=== PATIENT | male | born 1985 | race American Indian/Alaskan Native ===

== ENCOUNTER 2017-01-06 07:02 | Emergency (ER) | payer MEDICARE, MEDICAID ==
[2017-01-06 07:37] VITALS: BMI 25.5
[2017-01-06] MEDS ORDERED: Albuterol-Ipratrop 3 mg / 0.5 (3 ml) UD INH STA (07:38)
[2017-01-06] MEDS ORDERED: Albuterol 0.083% Inhal Sol (2.5 mg/3 mL) UD INH STA (07:38)
[2017-01-06 07:39] VITALS: RESP 20
[2017-01-06] MEDS ORDERED: Albuterol 0.083% Inhal Sol (2.5 mg/3 mL) UD ONE (07:44)
[2017-01-06] MEDS ORDERED: Magnesium Sulfate 1 gm in D5W 1 GM/100 ML BAG IVPB ONE ×2 (07:44→08:37)
[2017-01-06] MEDS ORDERED: Albuterol-Ipratrop 3 mg / 0.5 (3 ml) UD ONE (07:44)
[2017-01-06] MEDS: Magnesium Sulfate 1 gm in D5W 1 GM/100 ML BAG IVPB SCH ×2 (07:47→08:36)
[2017-01-06 08:08] LABS: BASO % 0.1 % (0.0-2.0); EOS % 0.2 % (0.0-4.0); HEMATOCRIT 34.4 % (35.0-51.0); LYMPH # 2.4 K/uL (1.0-4.3); MEAN CELL VOLUME 86.1 fL (80.0-94.0); MEAN CORPUSCULAR HEMOGLOBIN 28.4 pg (27.0-31.0); MEAN PLATELET VOLUME 9.9 fL (7.2-11.7); MONO # 0.8 K/uL (0.0-0.8); MONO % 7.6 % (0.0-10.0); RED CELL DISTRIBUTION WIDTH 15.1 % (11.5-14.5); WHITE BLOOD COUNT 10.4 K/uL (4.8-10.8)
[2017-01-06 08:14] LABS: CHLORIDE 106 mmol/L (98-107); SODIUM 142 mmol/L (132-148)
[2017-01-06 08:15] LABS: POTASSIUM 3.6 mmol/L (3.6-5.2)
--- NOTE | 2017-01-06 08:15 | C.PDOC ---
History Of Present Illness 31 y/o male with history of asthma presents to the ED complaining of shortness of breath and wheezing x 3 days. He admits to cough with yellowish sputum but denies fever, chest pain, recent travel, or known sick contacts. Patient reports seen at [facility] yesterday for same but eloped from the ED. Chief Complaint (Nursing): Shortness Of Breath History Per: Patient History/Exam Limitations: no limitations Onset/Duration Of Symptoms: Days (3), Persistent Current Symptoms Are (Timing): Still Present Current Respiratory Medications: See Home Med List Recent travel outside of the [place]: No Past Medical History Reviewed: Historical Data, Nursing Documentation, Vital Signs Vital Signs: Last Vital Signs Temp 97.9 F 01/06/17 07:36 Pulse 85 01/06/17 09:47 Resp 20 01/06/17 09:47 BP 141/89 01/06/17 09:47 Pulse Ox 99 01/06/17 09:47 - Medical History PMH: Asthma, HTN, Hypothyroidism Surgical History: No Surg Hx Family History: States: Unknown Family Hx - Social History Hx Tobacco Use: No Hx Alcohol Use: No Hx Substance Use: No - Immunization History Hx Tetanus Toxoid Vaccination: No Hx Influenza Vaccination: No Hx Pneumococcal Vaccination: No Review Of Systems Except As Marked, All Systems Reviewed And Found Negative. Constitutional: Negative for: Fever Cardiovascular: Negative for: Chest Pain Respiratory: Positive for: Shortness of Breath, Wheezing Physical Exam - Physical Exam Appears: Non-toxic, No Acute Distress Skin: Normal Color, Warm, Dry, No Rash Head: Atraumatic, Normacephalic Eye(s): bilateral: PERRL, Other (mild exophthalmos) Ear(s): Bilateral: Normal Nose: Normal Oral Mucosa: Moist Throat: Normal, No Erythema, No Exudate Neck: Normal ROM, Supple Chest: Symmetrical Cardiovascular: Rhythm Regular, No Edema Respiratory: No Rales, No Rhonchi, Wheezing (mild expiratory b/l), Other (good air entry) Gastrointestinal/Abdominal: Normal Exam, Bowel Sounds, Soft, No Tenderness Extremity: Normal ROM, No Pedal Edema, No Swelling Neurological/Psych: Oriented x3, Normal Speech, Normal Cognition ED Course And Treatment - Laboratory Results Result Diagrams: 01/06/17 07:42 01/06/17 07:42 ECG: Interpreted By Me ECG Rhythm: Sinus Rhythm Interpretation Of ECG: normal axis, normal intervals Rate From EC (bpm) O2 Sat by Pulse Oximetry: 100 (ra) Pulse Ox Interpretation: Normal Progress Note: Plan: EKG, CXR, Blood Work, Albuterol INH, Magnesium Sulfate IVPB , Prednisone IVP. Medical Decision Making Medical Decision Makin:50 - Patient denies SOB at this time. Lungs clear b/l. O2 sat at 100% on room air. Patient to be discharged with Rx and follow up instructions. Disposition - Disposition Referrals: [facility] [Outside] [facility] [Outside] Disposition: HOME/ ROUTINE Disposition Time: 09:50 Condition: IMPROVED Additional Instructions: Thank you for letting us take care of you today. Your provider was Dr. Pozo. You were treated for asthma exacerbation and hyperthyroidism. The emergency medical care you received today was directed at your acute symptoms. If you were prescribed any medication, please fill it and take as directed. It may take several days for your symptoms to resolve. Return to the Emergency Department if your symptoms worsen, do not improve, or if you have any other problems. Please contact your doctor or call one of the physicians/clinics you have been referred to that are listed on the Patient Visit Information form that is included in your discharge packet. Bring any paperwork you were given at discharge with you along with any medications you are taking to your follow up visit. Our treatment cannot replace ongoing medical care by a primary care provider (PCP) outside of the emergency department. Thank you for allowing the [facility] team to be part of your care today. Follow up with the clinic in 3-4 days to be re-evaluated. Prescriptions: Albuterol/Ipratropium [Duoneb 3 mg/0.5 mg (3 ml) UD] 1 ea IH Q6 PRN #1 unit PRN Reason: Shortness Of Breath Azithromycin [Zithromax] 250 mg PO DAILY #4 tab predniSONE [Prednisone] 40 mg PO DAILY #10 tab Propylthiouracil 50 mg PO Q8 #21 tab Instructions: Asthma (ED), Hyperthyroidism (ED) - Clinical Impression Clinical Impression: Asthma exacerbation, Hyperthyroidism, Bronchitis - Scribe Statement The provider has reviewed the documentation as recorded by the Scribe (Meredith Choudhury) Provider Attestation: All medical record entries made by the Scribe were at my direction and personally dictated by me. I have reviewed the chart and agree that the record accurately reflects my personal performance of the history, physical exam, medical decision making, and the department course for this patient. I have also personally directed, reviewed, and agree with the discharge instructions and disposition.
[2017-01-06 08:17] LABS: ALB/GLOB RATIO 1.2 (1.0-2.1); ALKALINE PHOSPHATASE 149 U/L (38-126); ALT/SGPT 33 U/L (21-72); AST/SGOT 37 U/L (17-59); BILIRUBIN,TOTAL 0.6 mg/dL (0.2-1.3); BLOOD UREA NITROGEN 16 mg/dL (9-20); CARBON DIOXIDE 25 mmol/L (22-30); GFR AFRICAN-AMERICAN > 60; TOTAL PROTEIN 6.4 g/dL (6.3-8.3)
[2017-01-06 08:18] LABS: CALCIUM 8.7 mg/dl (8.6-10.4); GLUCOSE,RANDOM 82 mg/dL (75-110)
[2017-01-06 08:33] LABS: T4 > 24.9 ug/dL (5.5-11.0)
[2017-01-06 08:36] LABS: FT3 > 22.80 pg/mL (2.77-5.27)
[2017-01-06 08:47] LABS: THYROID STIMULATING HORMONE < 0.02 mIU/L (0.46-4.68)
--- NOTE | 2017-01-06 09:44 | RAD ---
PROCEDURE: CHEST RADIOGRAPH, 1 VIEW HISTORY: SOB COMPARISON: None available. FINDINGS: LUNGS: Mild venous congestion. Right hilar prominence. PLEURA: No pneumothorax or pleural fluid seen. CARDIOVASCULAR: Normal. OSSEOUS STRUCTURES: No significant abnormalities. VISUALIZED UPPER ABDOMEN: Normal. OTHER FINDINGS: None. IMPRESSION: Mild venous congestion. Right hilar prominence.
[2017-01-06 09:48] VITALS: BP 141/89; PULSE 85
[2017-01-06 09:56] VITALS: O2SAT 100
[2017-01-06 10:01] VITALS: TEMP 98
--- NOTE | 2017-01-22 13:08 | CARD ---
APPROVED REPORT EKG Measurement Heart [id number] <Conclusion> Normal sinus rhythm Possible Left atrial enlargement Left ventricular hypertrophy Nonspecific T wave abnormality Prolonged QT Abnormal ECG
== END 2017-01-06 10:07 | disposition home or self-care (01) ==
LOC: C.ER 07:02
DX: J45.901 Unspecified asthma with (acute) exacerbation (principal); J20.9 Acute bronchitis, unspecified; E05.90 Thyrotoxicosis, unspecified without thyrotoxic crisis or storm
CPT/HCPCS: 71010; 80053; 84436; 84443; 84481; 85025; 93005; 94640; 96365; 96375; 96376; 99284; J2930; J3475

== ENCOUNTER 2017-06-08 21:30 | Inpatient (IN) | payer MEDICARE, MEDICAID ==
[2017-06-08 21:31] VITALS: BMI 25.5
[2017-06-08] MEDS ORDERED: Albuterol-Ipratrop 3 mg / 0.5 (3 ml) UD ONE (21:47)
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
[2017-06-09 01:39] LABS: BASO % 0.3 % (0.0-2.0); EOS # 0.1 K/uL (0.0-0.7); EOS % 1.4 % (0.0-4.0); HEMATOCRIT 37.8 % (35.0-51.0); LYMPH # 1.8 K/uL (1.0-4.3); LYMPH % 19.2 % (20.0-40.0); MEAN CELL VOLUME 90.8 fL (80.0-94.0); MEAN CORPUSCULAR HEMOGLOBIN 31.1 pg (27.0-31.0); MEAN CORPUSCULAR HGB CONC 34.2 g/dL (33.0-37.0); MEAN PLATELET VOLUME 10.2 fL (7.2-11.7); MONO # 0.5 K/uL (0.0-0.8); MONO % 5.8 % (0.0-10.0); NRBC % 0.1 % (0.0-2.0); RED CELL DISTRIBUTION WIDTH 12.7 % (11.5-14.5); WHITE BLOOD COUNT 9.5 K/uL (4.8-10.8)
[2017-06-09 01:51] LABS: RBC URINE 1 /hpf (0-3); URINE BILIRUBIN NEGATIVE (NEGATIVE); URINE BLOOD NEGATIVE (NEGATIVE); URINE COLOR Yellow (YELLOW); URINE GLUCOSE (UA) NORMAL (Normal); URINE KETONE NEGATIVE (NEGATIVE); URINE LEUKOCYTE ESTERASE TRACE Leu/uL (Negative); URINE PROTEIN 1+ mg/dL (NEGATIVE); WBC URINE 7 /hpf (0-5)
[2017-06-09 01:53] LABS: CHLORIDE 107 mmol/L (98-107)
[2017-06-09] MEDS ORDERED: Albuterol-Ipratrop 3 mg / 0.5 (3 ml) UD INH STA ×2 (01:53→07:37)
[2017-06-09 01:54] LABS: POTASSIUM 3.8 mmol/L (3.6-5.2); SODIUM 142 mmol/L (132-148)
[2017-06-09 01:56] LABS: ALB/GLOB RATIO 1.4 (1.0-2.1); ALKALINE PHOSPHATASE 147 U/L (38-126); ALT/SGPT 32 U/L (21-72); AST/SGOT 26 U/L (17-59); BILIRUBIN,TOTAL 0.8 mg/dL (0.2-1.3); BLOOD UREA NITROGEN 15 mg/dL (9-20); CARBON DIOXIDE 23 mmol/L (22-30); GFR AFRICAN-AMERICAN > 60; GLUCOSE,RANDOM 74 mg/dL (75-110); INR 1.1; TOTAL PROTEIN 6.8 g/dL (6.3-8.3)
[2017-06-09 01:57] LABS: CALCIUM 8.9 mg/dl (8.6-10.4)
[2017-06-09] MEDS ORDERED: Albuterol-Ipratrop 3 mg / 0.5 (3 ml) UD ONE ×2 (01:57→08:20)
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
[2017-06-09] MEDS ORDERED: Benzoin Compound Tincture (60 ml) ONE (03:48)
[2017-06-09] MEDS: HYDROmorphone 0.5 mg/0.5 ml ISec IVP PRN ×5 (04:42→21:28)
[2017-06-09] MEDS ORDERED: Dextrose 5%/0.45% NS 1,000 ML IV ONE (06:03)
[2017-06-09] MEDS: Dextrose 5%/0.45% NS 1,000 ML IV SCH (06:57)
[2017-06-09] MEDS: Pantoprazole 40 mg EC Tab PO SCH (11:11)
[2017-06-09] MEDS ORDERED: Pantoprazole 40 mg EC Tab PO ONE (11:11)
[2017-06-09] MEDS ORDERED: HYDROmorphone 1 mg/ml ISec IVP PRN (12:51)
--- NOTE | 2017-06-09 14:00 | CP.PCM.CON ---
History of Present Illness - History of Present Illness History of Present Illness: SPINE CONSULT Pt sen and examined. Full consult dictated. CT of T-spine ordered. If fx's confined to spinous precesses, no further intervention needed. Will f/u after CT done. Past Patient History - Past Social History Smoking Status: Light Smoker < 10 Cigarettes Daily - CARDIAC Hx Hypertension: Yes - PULMONARY Hx Asthma: Yes - ENDOCRINE/METABOLIC Hx Hypothyroidism: Yes - PSYCHIATRIC Hx Substance Use: No - SURGICAL HISTORY Hx Surgeries: Yes Other/Comment: right hand - ANESTHESIA Hx Anesthesia: Yes Hx Anesthesia Reactions: No Meds Allergies/Adverse Reactions: Allergies Allergy/AdvReac Type Severity Reaction Status Date / Time milk Allergy Verified 06/08/17 21:52 seafood Allergy Uncoded 06/08/17 21:52 - Medications Medications: Current Medications Albuterol/Ipratropium (Duoneb 3 Mg/0.5 Mg (3 Ml) Ud) 3 ml INH RQ6 REYES Hydromorphone HCl (Dilaudid) 0.5 mg IVP Q6H PRN PRN Reason: Pain, Mild (1-3) Last Admin: 06/09/17 09:15 Dose: 0.5 mg Hydromorphone HCl (Dilaudid) 1 mg IVP Q4H PRN PRN Reason: Pain, moderate (4-7) Dextrose/Sodium Chloride (Dextrose 5%/0.45% Ns 1000 Ml) 1,000 mls @ 50 mls/hr IV .Q20H [facility] Last Admin: 06/09/17 06:57 Dose: 50 mls/hr Pantoprazole Sodium (Protonix Ec Tab) 40 mg PO DAILY [facility] Last Admin: 06/09/17 11:11 Dose: 40 mg Results - Vital Signs Recent Vital Signs: Last Vital Signs Temp 98.4 F 06/09/17 13:50 Pulse 85 06/09/17 13:50 Resp 20 06/09/17 13:50 BP 144/68 06/09/17 13:50 Pulse Ox 97 06/09/17 13:50 - Labs Result Diagrams: 06/09/17 01:36 06/09/17 01:36 Labs: Laboratory Results - last 24 hr 06/09/17 06/09/17 06/09/17 01:36 01:36 01:36 WBC 9.5 RBC 4.16 L Hgb 12.9 Hct 37.8 MCV 90.8 D MCH 31.1 H MCHC 34.2 RDW 12.7 Plt Count 167 MPV 10.2 Neut % (Auto) 73.3 Lymph % (Auto) 19.2 L [place] % (Auto) 5.8 Eos % (Auto) 1.4 Baso % (Auto) 0.3 Neut # 6.9 Lymph # 1.8 [place] # 0.5 Eos # 0.1 Baso # 0.0 PT 11.8 INR 1.1 APTT 36 H Sodium 142 Potassium 3.8 Chloride 107 Carbon Dioxide 23 Anion Gap 16 BUN 15 Creatinine 0.7 L Est GFR ( Amer) > 60 Est GFR (Non-Af Amer) > 60 Random Glucose 74 L Calcium 8.9 Total Bilirubin 0.8 AST 26 ALT 32 Alkaline Phosphatase 147 H Total Protein 6.8 Albumin 4.0 Globulin 2.8 Albumin/Globulin Ratio 1.4 Urine Color Urine Clarity Urine pH Ur Specific [place] Urine Protein Urine Glucose (UA) Urine Ketones Urine Blood Urine Nitrate Urine Bilirubin Urine Urobilinogen Ur Leukocyte Esterase Urine WBC (Auto) Urine RBC (Auto) Ur Squamous Epith Cells Urine Opiates Screen Urine Methadone Screen Ur Barbiturates Screen Ur Phencyclidine Scrn Ur Amphetamines Screen U Benzodiazepines Scrn U Oth Cocaine Metabols U Cannabinoids Screen Blood Type Antibody Screen 06/09/17 06/09/17 06/09/17 01:36 01:38 01:38 WBC RBC Hgb Hct MCV MCH MCHC RDW Plt Count MPV Neut % (Auto) Lymph % (Auto) [place] % (Auto) Eos % (Auto) Baso % (Auto) Neut # Lymph # [place] # Eos # Baso # PT INR APTT Sodium Potassium Chloride Carbon Dioxide Anion Gap BUN Creatinine Est GFR ( Amer) Est GFR (Non-Af Amer) Random Glucose Calcium Total Bilirubin AST ALT Alkaline Phosphatase Total Protein Albumin Globulin Albumin/Globulin Ratio Urine Color Yellow Urine Clarity Clear Urine pH 5.0 Ur Specific [place] 1.025 Urine Protein 1+ H Urine Glucose (UA) Normal Urine Ketones Negative Urine Blood Negative Urine Nitrate Negative Urine Bilirubin Negative Urine Urobilinogen 4.0 Ur Leukocyte Esterase Trace Urine WBC (Auto) 7 H Urine RBC (Auto) 1 Ur Squamous Epith Cells 1 Urine Opiates Screen Negative Urine Methadone Screen Negative Ur Barbiturates Screen Negative Ur Phencyclidine Scrn Negative Ur Amphetamines Screen Negative U Benzodiazepines Scrn Negative U Oth Cocaine Metabols Negative U Cannabinoids Screen Positive Blood Type B POSITIVE Antibody Screen Negative
[2017-06-09] MEDS: Albuterol-Ipratrop 3 mg / 0.5 (3 ml) UD INH SCH ×2 (14:20→19:58)
--- NOTE | 2017-06-09 15:33 | CT ---
PROCEDURE: CT Thoracic Spine without contrast HISTORY: r/o fracture COMPARISON: None. TECHNIQUE: Axial computed tomography images were obtained of the thoracic spine without intravenous contrast. Coronal and sagittal reformatted images were created and reviewed. Radiation dose: Total exam DLP = 671.86 mGy-cm. This CT exam was performed using one or more of the following dose reduction techniques: Automated exposure control, adjustment of the mA and/or kV according to patient size, and/or use of iterative reconstruction technique. FINDINGS: VERTEBRAE: There is limited scoliotic deformity of the mid thoracic spine which is a reverse S shaped type scoliosis. Eight argue making made for anterior wedging of the T7 vertebral body and potentially T6 minimally. However this may be a function of chronic changes related to the limited scoliotic deformity. Nuclear bone scan or MRI can confirm whether this is an acute fracture process or not. No fragmentation is appreciated throughout the thoracic spine or suspicious lytic or blastic change. No bony central canal or neural foraminal stenosis identified. Ground-glass opacity is again seen the bilateral lower lobes incidentally.. DISCS/SPINAL CANAL/NEURAL FORAMINA: Within the limits of the CT technique, no disc herniation seen. No central canal or neural foraminal stenosis.. PARASPINAL SOFT TISSUES: Unremarkable. OTHER FINDINGS: Unremarkable. IMPRESSION: Minimal potential compression fractures of T7 and possibly T6 are identified but these may be chronic minimal deformities from limited scoliosis deformity. No gross fracture or fragmentation or spondylolisthesis identified. No spinal stenosis appreciable. MRI or bone scan can determine potential acute fracture if clinical concern remains.
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
[2017-06-10] MEDS: Albuterol-Ipratrop 3 mg / 0.5 (3 ml) UD INH SCH ×5 (02:07→19:23)
[2017-06-10] MEDS: HYDROmorphone 0.5 mg/0.5 ml ISec IVP PRN ×7 (02:34→20:31)
[2017-06-10] MEDS ORDERED: Albuterol-Ipratrop 3 mg / 0.5 (3 ml) UD INH STA (06:07)
[2017-06-10] MEDS: Pantoprazole 40 mg EC Tab PO SCH (09:10)
--- NOTE | 2017-06-10 09:45 | CP.PCM.PN ---
Subjective - Date & Time of Evaluation Date of Evaluation: 06/10/17 Time of Evaluation: 09:43 - Subjective Subjective: SPINE Spoke with nurse on phone. Pt still c/o signif pain. Will adjust analgesics. Reviewed CT - possible fx of vertebral body. Will order MRI to assess. Objective - Vital Signs/Intake and Output Vital Signs (last 24 hours): Temp Pulse Resp BP Pulse Ox 99.1 F 94 H 18 156/80 H 99 06/10/17 07:25 06/10/17 07:25 06/10/17 07:25 06/10/17 07:25 06/10/17 07:25 Intake and Output: 06/10/17 06/10/17 06:59 18:59 Intake Total 1158 Output Total 600 Balance 558 - Medications Medications: Current Medications Albuterol/Ipratropium (Duoneb 3 Mg/0.5 Mg (3 Ml) Ud) 3 ml INH RQ6 [facility] Last Admin: 06/10/17 02:07 Dose: 3 ml Hydromorphone HCl (Dilaudid) 0.5 mg IVP Q6H PRN PRN Reason: Pain, Mild (1-3) Last Admin: 06/10/17 06:02 Dose: 0.5 mg Hydromorphone HCl (Dilaudid) 1 mg IVP Q4H PRN PRN Reason: Pain, moderate (4-7) Last Admin: 06/10/17 08:28 Dose: 1 mg Dextrose/Sodium Chloride (Dextrose 5%/0.45% Ns 1000 Ml) 1,000 mls @ 50 mls/hr IV .Q20H [facility] Last Admin: 06/10/17 00:00 Dose: Not Given Pantoprazole Sodium (Protonix Ec Tab) 40 mg PO DAILY [facility] Last Admin: 06/10/17 09:10 Dose: 40 mg - Labs Labs: 06/09/17 01:36 06/09/17 01:36 PT 11.8 SECONDS (9.7-12.2) 06/09/17 01:36 INR 1.1 06/09/17 01:36 APTT 36 SECONDS (21-34) H 06/09/17 01:36
[2017-06-10] MEDS: oxyCODONE 20 mg ER Tab (oxyCONTIN) PO SCH ×3 (12:08→22:08)
[2017-06-10 16:14] VITALS: RESP 20
[2017-06-10] MEDS ORDERED: Bacitracin 500 Units/gm Oint Foilpak UD TOP ONE (17:30)
--- NOTE | 2017-06-10 19:45 | CP.PCM.PN ---
Subjective - Date & Time of Evaluation Date of Evaluation: 06/10/17 Time of Evaluation: 11:00 - Subjective Subjective: clinically same Objective - Vital Signs/Intake and Output Vital Signs (last 24 hours): Temp Pulse Resp BP Pulse Ox 98.6 F 91 H 20 145/70 99 06/10/17 15:13 06/10/17 15:30 06/10/17 15:13 06/10/17 15:13 06/10/17 15:13 - Medications Medications: Current Medications Albuterol/Ipratropium (Duoneb 3 Mg/0.5 Mg (3 Ml) Ud) 3 ml INH RQ6 [facility] Last Admin: 06/10/17 19:23 Dose: 3 ml Hydromorphone HCl (Dilaudid) 1 mg IVP Q3H PRN PRN Reason: Pain, severe (8-10) Last Admin: 06/10/17 17:33 Dose: 1 mg Dextrose/Sodium Chloride (Dextrose 5%/0.45% Ns 1000 Ml) 1,000 mls @ 50 mls/hr IV .Q20H [facility] Last Admin: 06/10/17 00:00 Dose: Not Given Oxycodone HCl (Oxycontin Extended Release Tab) 20 mg PO Q12 [facility] Last Admin: 06/10/17 16:15 Dose: 20 mg Pantoprazole Sodium (Protonix Ec Tab) 40 mg PO DAILY [facility] Last Admin: 06/10/17 09:10 Dose: 40 mg - Labs Labs: 06/09/17 01:36 06/09/17 01:36 PT 11.8 SECONDS (9.7-12.2) 06/09/17 01:36 INR 1.1 06/09/17 01:36 APTT 36 SECONDS (21-34) H 06/09/17 01:36 - Constitutional Appears: Well - Head Exam Head Exam: ATRAUMATIC, NORMAL INSPECTION, NORMOCEPHALIC - Eye Exam Eye Exam: EOMI, Normal appearance, PERRL Pupil Exam: NORMAL ACCOMODATION, PERRL - ENT Exam ENT Exam: Mucous Membranes Moist, Normal Exam - Neck Exam Neck Exam: Full ROM, Normal Inspection. absent: Lymphadenopathy - Respiratory Exam Respiratory Exam: Decreased Breath Sounds - Cardiovascular Exam Cardiovascular Exam: REGULAR RHYTHM, +S1, +S2 - GI/Abdominal Exam GI & Abdominal Exam: Soft, Diminished Bowel Sounds - Rectal Exam Rectal Exam: Deferred
[2017-06-10] MEDS: Dextrose 5%/0.45% NS 1,000 ML IV SCH ×2 (22:11)
[2017-06-11] MEDS: Albuterol-Ipratrop 3 mg / 0.5 (3 ml) UD INH SCH ×3 (01:24→19:14)
[2017-06-11] MEDS: HYDROmorphone 0.5 mg/0.5 ml ISec IVP PRN ×4 (01:39→11:27)
[2017-06-11 08:57] VITALS: O2SAT 98
[2017-06-11] MEDS ORDERED: Bacitracin 500 Units/gm Oint Foilpak UD TOP SCH (10:00)
[2017-06-11] MEDS: Pantoprazole 40 mg EC Tab PO SCH (10:40)
[2017-06-11] MEDS: oxyCODONE 20 mg ER Tab (oxyCONTIN) PO SCH (10:40)
[2017-06-11] MEDS ORDERED: HYDROmorphone 0.5 mg/0.5 ml ISec IVP PRN ×2 (11:40→17:00)
[2017-06-11] MEDS ORDERED: Albuterol-Ipratrop 3 mg / 0.5 (3 ml) UD INH ONE (12:15)
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
[2017-06-11 16:20] VITALS: BP 143/77; PULSE 81; TEMP 98.2
[2017-06-11] MEDS ORDERED: HYDROmorphone 1 mg/ml ISec IVP PRN (17:00)
--- NOTE | 2017-06-11 17:28 | CP.PCM.PN ---
Subjective - Date & Time of Evaluation Date of Evaluation: 06/11/17 Time of Evaluation: 17:27 - Subjective Subjective: PRIMARY RN LEANDER REQUESTED HELP WITH PT'S MED ORDERS FOR PAIN AND ATTENDING NOT CALLING HIM BACK. PER PRIMARY RN LEANDER, PT IS CURRENTLY REFUSING APARTMENT COORDINATOR PUMP BECAUSE HE DOESN'T WANT TO USE THE CO2 DETECTOR. APARTMENT COORDINATOR ORDER D/ C'D AND REORDERED DILAUDID 1 MG Q3 PRN WHICH PT WAS GETTING EARLIER. DR. Leonardo BERRY MADE AWARE. NO FURTHER ORDERS PER LINING CEMENTER. Objective - Vital Signs/Intake and Output Vital Signs (last 24 hours): Temp Pulse Resp BP Pulse Ox 98.2 F 81 20 143/77 98 06/11/17 16:00 06/11/17 16:00 06/11/17 16:00 06/11/17 16:00 06/11/17 16:00 - Medications Medications: Current Medications Acetaminophen (Tylenol 325mg Tab) 975 mg PO Q6 [facility] Albuterol/Ipratropium (Duoneb 3 Mg/0.5 Mg (3 Ml) Ud) 3 ml INH RQ6 [facility] Last Admin: 06/11/17 07:13 Dose: 3 ml Bacitracin (Bacitracin) 1 ea TOP BID [facility] Last Admin: 06/11/17 10:45 Dose: 1 ea Cyclobenzaprine HCl (Flexeril) 5 mg PO TID [facility] Last Admin: 06/11/17 17:06 Dose: 5 mg Hydromorphone HCl (Dilaudid) 1 mg IVP Q3 PRN PRN Reason: Pain, moderate (4-7) Last Admin: 06/11/17 17:01 Dose: 1 mg Dextrose/Sodium Chloride (Dextrose 5%/0.45% Ns 1000 Ml) 1,000 mls @ 50 mls/hr IV .Q20H [facility] Last Admin: 06/10/17 22:11 Dose: 50 mls/hr Pantoprazole Sodium (Protonix Ec Tab) 40 mg PO DAILY [facility] Last Admin: 06/11/17 10:40 Dose: 40 mg - Labs Labs: 06/09/17 01:36 06/09/17 01:36 PT 11.8 SECONDS (9.7-12.2) 06/09/17 01:36 INR 1.1 06/09/17 01:36 APTT 36 SECONDS (21-34) H 06/09/17 01:36
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
[2017-06-11] MEDS: Dextrose 5%/0.45% NS 1,000 ML IV SCH ×2 (18:16→18:59)
--- NOTE | 2017-06-11 20:45 | CP.PCM.PN ---
Subjective - Date & Time of Evaluation Date of Evaluation: 06/11/17 Time of Evaluation: 12:40 - Subjective Subjective: clinically same Objective - Vital Signs/Intake and Output Vital Signs (last 24 hours): Temp Pulse Resp BP Pulse Ox 98.2 F 81 20 143/77 98 06/11/17 16:00 06/11/17 16:00 06/11/17 16:00 06/11/17 16:00 06/11/17 16:00 Intake and Output: 06/11/17 06/12/17 18:59 06:59 Intake Total 480 Balance 480 - Medications Medications: Current Medications Acetaminophen (Tylenol 325mg Tab) 975 mg PO Q6 [facility] Last Admin: 06/11/17 19:04 Dose: Not Given Albuterol/Ipratropium (Duoneb 3 Mg/0.5 Mg (3 Ml) Ud) 3 ml INH RQ6 [facility] Last Admin: 06/11/17 19:14 Dose: 3 ml Bacitracin (Bacitracin) 1 ea TOP BID [facility] Last Admin: 06/11/17 10:45 Dose: 1 ea Cyclobenzaprine HCl (Flexeril) 5 mg PO TID [facility] Last Admin: 06/11/17 17:06 Dose: 5 mg Hydromorphone HCl (Dilaudid) 1 mg IVP Q3 PRN PRN Reason: Pain, moderate (4-7) Last Admin: 06/11/17 17:01 Dose: 1 mg Dextrose/Sodium Chloride (Dextrose 5%/0.45% Ns 1000 Ml) 1,000 mls @ 50 mls/hr IV .Q20H [facility] Last Admin: 06/11/17 18:59 Dose: 50 mls/hr Oxycodone HCl (Oxycontin Extended Release Tab) 20 mg PO Q12 [facility] Pantoprazole Sodium (Protonix Ec Tab) 40 mg PO DAILY [facility] Last Admin: 06/11/17 10:40 Dose: 40 mg - Labs Labs: 06/09/17 01:36 06/09/17 01:36 PT 11.8 SECONDS (9.7-12.2) 06/09/17 01:36 INR 1.1 06/09/17 01:36 APTT 36 SECONDS (21-34) H 06/09/17 01:36
[2017-06-11] MEDS ORDERED: oxyCODONE 20 mg ER Tab (oxyCONTIN) PO SCH (22:00)
== END 2017-06-11 21:10 | disposition left against medical advice (07) | DRG 206 ==
LOC: C.ER 21:30 → C.9E 06-09 02:23 → C.6T 06-09 12:45
PROVIDERS: ADMIT Internal Medicine Nephrology; ATTEND Internal Medicine Nephrology
DX: S22.32XA Fracture of one rib, left side, initial encounter for closed fracture (principal); S27.329A Contusion of lung, unspecified, initial encounter; S09.90XA Unspecified injury of head, initial encounter; W19.XXXA Unspecified fall, initial encounter; I10 Essential (primary) hypertension; Z87.891 Personal history of nicotine dependence; E03.9 Hypothyroidism, unspecified; F12.10 Cannabis abuse, uncomplicated

== ENCOUNTER 2018-04-19 19:57 | Emergency (ER) | payer MEDICARE, MEDICAID ==
[2018-04-19 19:58] VITALS: BMI 25.5
[2018-04-19] MEDS ORDERED: Sodium Chloride 0.9% 1,000 ML IV ONE (20:27)
[2018-04-19 20:39] LABS: BASO % 0.3 % (0.0-2.0); EOS % 0.2 % (0.0-4.0); HEMOGLOBIN 14.2 g/dL (12.0-18.0); LYMPH # 0.7 K/uL (1.0-4.3); LYMPH % 8.3 % (20.0-40.0); MEAN CORPUSCULAR HEMOGLOBIN 32.3 pg (27.0-31.0); MEAN CORPUSCULAR HGB CONC 34.2 g/dL (33.0-37.0); MONO # 0.2 K/uL (0.0-0.8); MONO % 2.8 % (0.0-10.0); NEUT # 7.3 K/uL (1.8-7.0); NEUT % 88.4 % (50.0-75.0); PLATELET COUNT 187 K/uL (130-400); RBC 4.41 Mil/uL (4.40-5.90); RED CELL DISTRIBUTION WIDTH 12.9 % (11.5-14.5); WHITE BLOOD COUNT 8.3 K/uL (4.8-10.8)
[2018-04-19 20:44] LABS: MEAN CELL VOLUME 94.2 fL (80.0-94.0)
[2018-04-19 20:54] LABS: ALB/GLOB RATIO 1.5 (1.0-2.1); ALT/SGPT 24 U/L (21-72); AST/SGOT 24 U/L (17-59); BLOOD UREA NITROGEN 9 mg/dL (9-20); CALCIUM 9.6 mg/dl (8.6-10.4); GFR AFRICAN-AMERICAN > 60; GFR NON-AFRICAN AMERICAN > 60; LIPASE 20 U/L (23-300)
--- NOTE | 2018-04-19 21:10 | C.PDOC ---
History Of Present Illness 32 y/o male presents with complaints of crampy abdominal pain, ongoing for several months. Patient was recently admitted to [facility] for same, and extensive work-up was negative. Patient is pending outpatient endoscopy. On further discussion, patient describes pain as colicky. He admits his diet consists of fried chicken, hamburgers, and snack chips. He drinks little water. Pain has been unchanged for months. Additionally, patient has had clinical hyperthyroidism, for which he is taking methimazole regularly. Time Seen by Provider: 04/19/18 20:20 Chief Complaint (Nursing): Abdominal Pain History Per: Patient History/Exam Limitations: no limitations Onset/Duration Of Symptoms: Days Current Symptoms Are (Timing): Still Present Past Medical History Reviewed: Historical Data, Nursing Documentation, Vital Signs Vital Signs: Last Vital Signs Temp 99.4 F 04/19/18 21:35 Pulse 79 04/19/18 21:35 Resp 22 04/19/18 21:35 BP 143/72 04/19/18 21:35 Pulse Ox 100 04/19/18 22:07 - Medical History PMH: Asthma, HTN, Hyperthyroidism (goiter noted right side of neck) Denies: Alzheimer's Disease, Anemia, Atrial Fibrillation, Bronchitis, Cardia Arrhythmia, CHF, COPD, Dementia, Emphysema, HIV, Hypercholesterolemia, Hypothyroidism, Kidney Stones, Migraine, Mitral Valve Prolapse, Multiple Sclerosis, Parkinson's Disease, Peripheral Edema, Pneumonia, Pulmonary Embolism , Chronic Kidney Disease, Seizures, Sickle Cell Disease, Sleep Apnea, TIA Surgical History: Denies: Pacemaker Family History: States: Unknown Family Hx - Social History Hx Tobacco Use: No Hx Alcohol Use: No Hx Substance Use: No - Immunization History Hx Tetanus Toxoid Vaccination: No Hx Influenza Vaccination: No Hx Pneumococcal Vaccination: No Review Of Systems Except As Marked, All Systems Reviewed And Found Negative. Constitutional: Negative for: Fever, Chills, Sweats, Weight loss (or weight gain ) Cardiovascular: Negative for: Chest Pain, Palpitations Respiratory: Negative for: Shortness of Breath Gastrointestinal: Positive for: Abdominal Pain. Negative for: Nausea, Vomiting , Diarrhea, Constipation Neurological: Negative for: Weakness, Numbness, Dizziness Physical Exam - Physical Exam Appears: Non-toxic, No Acute Distress Skin: Warm, Dry, No Rash Head: Atraumatic, Normacephalic Eye(s): bilateral: Normal Inspection, PERRL, EOMI Oral Mucosa: Moist Neck: Normal ROM, Supple Chest: Symmetrical Cardiovascular: Rhythm Regular, No Murmur Respiratory: Normal Breath Sounds, No Rales, No Rhonchi, No Wheezing Gastrointestinal/Abdominal: Bowel Sounds (Dull to percussion), Soft, No Tenderness, No Guarding, No Rebound, Other (thin abdomen) Extremity: Bilateral: Atraumatic, Normal Color And Temperature, Normal ROM Pulses: Left Dorsalis Pedis: Normal, Right Dorsalis Pedis: Normal Neurological/Psych: Oriented x3, Normal Speech, Normal Cranial Nerves ED Course And Treatment - Laboratory Results Result Diagrams: 04/19/18 20:43 04/19/18 20:31 Lab Interpretation: Normal O2 Sat by Pulse Oximetry: 100 (RA) Pulse Ox Interpretation: Normal - Radiology CXR: Interpreted by Me CXR Interpretation: Yes: No Acute Disease - Other Rad abd 2 X-Ray: Interpreted by Me (+FOS, no obst) Reevaluation Time: 21:10 Reassessment Condition: Improved Medical Decision Making Medical Decision Making: Initial Plan: * Labs * x-ray obstructive series * IV fluids * Toradol 30 mg IVP * Zofran 4 mg IVP * Protonix 40 mg IVP Final Impression: acute on chronic constipation Patient is stable for d/c home. Counseled regarding diagnosis and treatment plan. Disposition Doctor Will See Patient In The: Office Counseled Patient/Family Regarding: Studies Performed, Diagnosis, Need For Followup - Disposition Referrals: Tyler Santiago MD [Staff Provider] - Disposition: HOME/ ROUTINE Disposition Time: 21:11 Condition: GOOD Additional Instructions: drink a laxative now (one entire bottle of Mag Citrate) and re-evaluate your abdominal discomfort after using the bathroom 2-3 times. diet and exercise changes Occasional laxatives as needed. Follow-up with your PMD Instructions: Constipation in Adults, Gas and Bloating (ED) Forms: [facility] (Czech) - POA Present On Arrival: None - Clinical Impression Clinical Impression: Colicky LLQ abdominal pain - Scribe Statement The provider has reviewed the documentation as recorded by the Scribe (Aileen House) Provider Attestation: All medical record entries made by the Scribe were at my direction and personally dictated by me. I have reviewed the chart and agree that the record accurately reflects my personal performance of the history, physical exam, medical decision making, and the department course for this patient. I have also personally directed, reviewed, and agree with the discharge instructions and disposition.
[2018-04-19 21:24] LABS: MONOCYTE 1 % (0-10); TOTAL CELLS COUNTED 100
[2018-04-19 21:25] LABS: LYMPHOCYTE 10 % (20-40); NEUTROPHIL 89 % (50-75); PLATELET ESTIMATE NORMAL (NORMAL)
[2018-04-19 21:37] VITALS: BP 143/72; PULSE 79; RESP 22; TEMP 99.4
[2018-04-19 22:08] VITALS: O2SAT 100
--- NOTE | 2018-04-20 08:44 | RAD ---
Date of service: 04/19/2018 PROCEDURE: Radiographs of the chest and abdomen (obstructive series) HISTORY: abd pain COMPARISON: No prior. TECHNIQUE: AP radiograph of the chest, with upright and supine radiographs of the abdomen. FINDINGS: CHEST: Lungs: Clear. Cardiovascular: Normal size heart. No pulmonary vascular congestion. Pleura: No pleural fluid. No pneumothorax. Other findings: None. ABDOMEN AND PELVIS: Bowel: Moderate stool retention. No evidence of mechanical obstruction. Free air: None. Bones: Transitional elements are inferred - the most inferior thoraco lumbar ribs are rudimentary and there is incomplete closure of the posterior elements at the lumbosacral junction. Left posterior mid to upper rib old healed fracture deformity noted. . Minimal scoliosis noted Other findings: None. IMPRESSION: No pulmonary infiltrate. Moderate stool retention No evidence of mechanical bowel obstruction.
== END 2018-04-19 21:42 | disposition home or self-care (01) ==
LOC: C.ER 19:57
DX: R10.32 Left lower quadrant pain (principal)
CPT/HCPCS: 74022; 80053; 83690; 85025; 96374; 96375; 99284; C9113; G0480; J1885; J2405; J7030